=== PATIENT | female | born 1950 | race Caucasian/White ===

== ENCOUNTER 2020-01-16 05:57 | Day surgery (SDC) | payer MEDICARE ==
[2020-01-15 10:59] LABS: ALBUMIN 3.4 G/DL (3.4-5.0); ANION GAP 8 (8-16); BASOPHILS # (AUTO) 0.1 X10'3 (0-0.2); BASOPHILS % (AUTO) 0.9 % (0-1); BLOOD UREA NITROGEN 16 MG/DL (7-18); BUN/CREATININE RATIO 16.2 (6.6-38.0); CALCIUM 9.1 MG/DL (8.5-10.1); CHLORIDE 109 MMOL/L (99-107); CREATININE 0.99 MG/DL (0.40-0.90); EOSINOPHILS # (AUTO) 0.2 X10'3 (0-0.9); EOSINOPHILS % (AUTO) 3.3 % (0-6); GLUCOSE 83 MG/DL (70-104); HEMATOCRIT 37.2 % (35.0-45.0); HEMOGLOBIN 12.1 g/dl (12.0-16.0); LYMPHOCYTES % (AUTO) 27.9 % (21-51); MEAN CORPUSCULAR HEMOGLOBIN 27.4 PG (27.0-31.0); MEAN CORPUSCULAR HGB CONC 32.6 g/dL (33.0-36.5); MEAN PLATELET VOLUME 6.6 FL (7.4-10.4); MONOCYTES # (AUTO) 0.6 X10'3 (0-0.9); MONOCYTES % (AUTO) 8.1 % (2-12); NEUTROPHILS # (AUTO) 4.2 X10'3 (1.8-7.7); NEUTROPHILS % (AUTO) 59.8 % (42-75); PLATELET COUNT 302 X10'3 (140-440); POTASSIUM 3.6 MMOL/L (3.5-5.1); RED BLOOD COUNT 4.43 X10'6 (4.20-5.60); RED CELL DISTRIBUTION WIDTH 14.9 % (11.5-14.5); SODIUM 146 MMOL/L (135-145); TOTAL CARBON DIOXIDE 28.6 MMOL/L (24-32); eGFR 56 ML/MIN
[2020-01-15 11:03] LABS: PARTIAL THROMBOPLASTIN TIME 28 SECONDS (22-32)
[~2020-01-16] VITALS: Ht 152.4 cm; Wt 59.1 kg
[2020-01-16] VITALS (10 sets, daily range): BP systolic 132–163; BP diastolic 81–96
[2020-01-16] MEDS ORDERED: diphenhydrAMINE 25mg capsule PO PRN (06:20)
[2020-01-16] MEDS ORDERED: LORazepam 0.5 MG tablet PO PRN (06:20)
[2020-01-16] MEDS ORDERED: normal saline 1,000 ML IV SCH (06:20)
[2020-01-16] MEDS ORDERED: LIDOcaine/PRILOcaine 5gm cream TP ONE (06:35)
[2020-01-16] MEDS ORDERED: MORP30CA16 PO (06:36)
[2020-01-16] MEDS ORDERED: ALBU18HF2 INH (06:36)
[2020-01-16] MEDS ORDERED: TRAZ-251 PO (06:36)
[2020-01-16] MEDS ORDERED: Prevagen PO (06:36)
[2020-01-16] MEDS ORDERED: DULO60CA65 PO (06:36)
[2020-01-16] MEDS ORDERED: ASPI-611 PO (06:36)
[2020-01-16] MEDS ORDERED: NITR0.4T51 SL (06:36)
[2020-01-16] MEDS ORDERED: vitamin B12 PO (06:36)
[2020-01-16] MEDS ORDERED: HYDR-3972 PO (06:36)
[2020-01-16] MEDS ORDERED: MELO-102 PO (06:36)
[2020-01-16] MEDS ORDERED: OMEP20TA5 PO (06:36)
[2020-01-16] MEDS ORDERED: verapamil 2.5 mg/ml inj IV ONE (07:26)
[2020-01-16] MEDS ORDERED: nitroGLYCERIN-Tridil 50MG/D5W 250 ML IV ONE (07:26)
[2020-01-16] MEDS ORDERED: fentaNYL/PF 50MCG/1 ML 2ML syringe ONE (07:27)
[2020-01-16] MEDS ORDERED: LIDOcaine 1% (10mg/ml)w/preservative injection 20ml MDV ONE (07:27)
[2020-01-16] MEDS ORDERED: midazolam 2 mg/2 ml injection ONE (07:27)
[2020-01-16] MEDS ORDERED: iohexol 350 MG/ML 50ML vial IV ONE (07:27)
[2020-01-16] MEDS ORDERED: heparin 1,000unit/ml 10ml vial 10 ML ONE (07:27)
[2020-01-16] MEDS ORDERED: iohexol 350MG/ML 100ml bottle IV ONE (07:27)
--- NOTE | 2020-01-16 09:35 | NUR ---
pt ambulated to bathroom, voided. denies cp, denies sob. vascular band in place. no s/s of bleeding
[2020-01-16] MEDS ORDERED: normal saline 1,000 ML IV ONE (11:59)
[2020-01-16 12:00] LABS: ISTAT HGB ART 11.9 g/dl (12.0-16.0); ISTAT Hct ART 35 %PCV (35-48); ISTAT O2 SATURATION ARTERIAL 95 % (95-98); ISTAT SOURCE ART
[2020-01-16] MEDS ORDERED: normal saline 1000ml 1,000 ML IV ONE (12:00)
[2020-01-16] MEDS ORDERED: HYDROcodone/acetaminophen 5mg/325mg tablet PO PRN (12:00)
[2020-01-16] MEDS ORDERED: HYDROcodone/acetaminophen 10/325mg tab PO PRN (12:00)
--- NOTE | 2020-01-16 12:00 | NUR ---
Report from URIAH Guardado-she spoke w/pt daughter by phone to review D/C instructions-written exit care provided on D/C
--- NOTE | 2020-01-16 12:00 | NUR ---
Report from DebbyRN-pt has coban wrap to Rt wrist-RN stated site is CDI w/no hematoma-Pt A&O X4 -VSS-sitting up in gurney watching TV-does not want PO intake at this time
--- NOTE | 2020-01-16 12:13 | NUR ---
Problems reprioritized. Patient report given, questions answered & plan of care reviewed with Jenny KRUSE.
== END 2020-01-16 14:09 | disposition home or self-care (01) ==
LOC: SSTAY O 05:57
PROVIDERS: ATTEND Internal Medicine Cardiovascular Disease
DX: R94.39 Abnormal result of other cardiovascular function study (principal); I25.10 Atherosclerotic heart disease of native coronary artery without angina pectoris; M06.9 Rheumatoid arthritis, unspecified; J44.9 Chronic obstructive pulmonary disease, unspecified; K21.9 Gastro-esophageal reflux disease without esophagitis; E03.9 Hypothyroidism, unspecified; M19.90 Unspecified osteoarthritis, unspecified site; Z88.8 Allergy status to other drugs, medicaments and biological substances; Z87.891 Personal history of nicotine dependence; Z88.1 Allergy status to other antibiotic agents; Z79.899 Other long term (current) drug therapy; Z79.82 Long term (current) use of aspirin; Z90.710 Acquired absence of both cervix and uterus; Z98.890 Other specified postprocedural states; Z90.722 Acquired absence of ovaries, bilateral; Z82.49 Family history of ischemic heart disease and other diseases of the circulatory system; Z80.1 Family history of malignant neoplasm of trachea, bronchus and lung; Z79.01 Long term (current) use of anticoagulants
CPT/HCPCS: 36415; 80048; 82803; 85014; 85025; 85610; 85730; 93005; 93460; 99152; 99153; C1769; C1894; J1644; J2001; J2250; J3010; J7030; Q0163; Q9967; A4620; A5120; C1751; J3490